=== PATIENT | male | born 1975 | race Caucasian/White ===

== ENCOUNTER 2023-02-26 08:16 | Emergency (ER) | payer OTHER, SELFPAY ==
[2023-02-26 08:21] VITALS: BP 127/90; PULSE 78; RESP 18; TEMP 36.4; O2SAT 96; BMI 30.3
--- NOTE | 2023-02-26 09:30 | ED_ITS ---
HPI - General Adult General Time Seen by Provider: 09:30 <Demi Garcia - Last Filed: 02/26/23 10:55> Date Seen: 02/26/23 <Demi Garcia - Last Filed: 02/26/23 10:55> Chief complaint: Headache/Migraine <Demi Garcia - Last Filed: 02/26/23 10:55> Stated complaint: head pains <Demi Garcia - Last Filed: 02/26/23 10:55> Time Seen by Provider: 02/26/23 08:54 <Demi Garcia - Last Filed: 02/26/23 10:55> Source: patient <Demi Garcia Last Filed: 02/26/23 10:55> History of Present Illness HPI narrative: 47 yo male without a pertinent prior medical hx presents with 1 day of headache at the base of the skull. He notes that a few days prior he had some fluttering in his left thigh as well as yesterday having fluttering of the muscles on the L side of his neck. This morning he woke up with a headache at the back of his skull with occasional numbness/tingling down the left side of the neck. He reports mild nausea but denies vomiting. He denies a hx of migraines, any recent falls or trauma to the head. He has not taken anything for the pain and is not currently on any medications. He is not on any blood thinners and has no family hx of bleeding or clotting disorders. He reports concern for a blood clots but denies any warmth or redness in the leg or prolonged periods of inactivity and has no history of blood clots. His sons have had colds for the past week or so and did not test for covid. He denies fever, chills, cough, congestion or diarrhea. Denies chest pain, heart palpitations or shortness of breath. <Demi Garcia Last Filed: 02/26/23 10:55> Related Data Home medications: Home Medications Medication Instructions Recorded Confirmed No Known Home Medications 02/26/23 02/26/23 <Demi Garcia Last Filed: 02/26/23 10:55> Allergies/adverse reactions: Allergies Allergy/AdvReac Type Severity Reaction Status Date / Time No Known Drug Allergies Allergy Verified 02/26/23 08:25 <Demi Garcia - Last Filed: 02/26/23 10:55> Review of Systems Status of ROS: Reports: 10 or more systems reviewed and unremarkable except as noted in History and below <Demi Garcia Last Filed: 02/26/23 10:55> Narrative: Constitutional: No fevers, no weight gain or loss. Eyes: No discharge. No vision changes. HENT: No congestion, no sore throat, no ear pain. Cardiovascular: No chest pain, no palpitations. Respiratory: No shortness of breath, no wheezes, no cough. Gastrointestinal: No abdominal pain, no vomiting, no diarrhea. Genitourinary: No dysuria, no hematuria. Musculoskeletal: Normal range of motion. Skin: No rashes, no pruritis. Neurological: No dizziness, weakness, sensory change, speech change. Endo/Heme/Allergies: No bruising or bleeding. No polydipsia. Pysch: no suicidality, no anxiety, no insomnia. All other systems reviewed and are negative. <Salty Amaya MD - Last Filed: 02/26/23 11:09> Exam Narrative: Exam Narrative: General: He is well appearing and lying upright in bed. HEENT: Normocephalic, atraumatic, PEERL Neck: Supple, no cervical adenopathy, ROM nml Cardiac: Regular rate Resp: No increased work of breathing on room air MSK: No LE edema, distal pulses 2+ b/l, no erythema, warmth or rashes of distal LEs Neuro: B/l certified detention deputy strength intact, LE strength 5/5 b/l <Demi Garcia Last Filed: 02/26/23 10:55> Const: Vital Signs, click to edit/add: Vital Signs - 24 hr 02/26/23 08:21 Temperature 97.6 F Pulse Rate [Right Pulse Oximeter] 78 Respiratory Rate 18 Blood Pressure [Ri ght Upper Arm] 127/90 H Pulse Oximetry 96 Oxygen Delivery Me thod Room Air <Demi Garcia Last Filed: 02/26/23 10:55> Vital Signs, click to edit/add: Vital Signs - 24 hr 02/26/23 08:21 Temperature 97.6 F Pulse Rate [Right Pulse Oximeter] 78 Respiratory Rate 18 Blood Pressure [Ri ght Upper Arm] 127/90 H Pulse Oximetry 96 Oxygen Delivery Me thod Room Air <Salty Amaya MD - Last Filed: 02/26/23 11:09> Course Course ED Course: DDx includes but not limited to Covid, migraine, cluster headache, tension headache, muscle fasciculations, DVT, cervical radiculopathy <Demi Jose - Last Filed: 02/26/23 10:55> Vital Signs Vital signs: Initial Vital Signs Temperature 97.6 F 02/26/23 08:21 Temperature Source Temporal Artery Scan 02/26/23 08:21 Pulse Rate 78 02/26/23 08:21 Respiratory Rate 18 02/26/23 08:21 Blood Pressure 127/90 H 02/26/23 08:21 Blood Pressure Mean 102 02/26/23 08:21 Blood Pressure Position Sitting 02/26/23 08:21 Pulse Oximetry 96 02/26/23 08:21 Oxygen Delivery Method Room Air 02/26/23 08:21 Vital Signs Temperature 97.6 F 02/26/23 08:21 Pulse Rate 78 02/26/23 08:21 Respiratory Rate 18 02/26/23 08:21 Blood Pressure 127/90 H 02/26/23 08:21 Pulse Oximetry 96 02/26/23 08:21 Oxygen Delivery Method Room Air 02/26/23 08:21 Temperature 97.6 F 02/26/23 08:21 Pulse Rate 78 02/26/23 08:21 Respiratory Rate 18 02/26/23 08:21 Blood Pressure 127/90 H 02/26/23 08:21 Pulse Oximetry 96 02/26/23 08:21 Oxygen Delivery Method Room Air 02/26/23 08:21 <Demi [place] - Last Filed: 02/26/23 10:55> Initial Vital Signs Temperature 97.6 F 02/26/23 08:21 Temperature Source Temporal Artery Scan 02/26/23 08:21 Pulse Rate 78 02/26/23 08:21 Respiratory Rate 18 02/26/23 08:21 Blood Pressure 127/90 H 02/26/23 08:21 Blood Pressure Mean 102 02/26/23 08:21 Blood Pressure Position Sitting 02/26/23 08:21 Pulse Oximetry 96 02/26/23 08:21 Oxygen Delivery Method Room Air 02/26/23 08:21 Vital Signs Temperature 97.6 F 02/26/23 08:21 Pulse Rate 78 02/26/23 08:21 Respiratory Rate 18 02/26/23 08:21 Blood Pressure 127/90 H 02/26/23 08:21 Pulse Oximetry 96 02/26/23 08:21 Oxygen Delivery Method Room Air 02/26/23 08:21 Temperature 97.6 F 02/26/23 08:21 Pulse Rate 78 02/26/23 08:21 Respiratory Rate 18 02/26/23 08:21 Blood Pressure 127/90 H 02/26/23 08:21 Pulse Oximetry 96 02/26/23 08:21 Oxygen Delivery Method Room Air 02/26/23 08:21 <Salty Amaya MD - Last Filed: 02/26/23 11:09> Medical Decision Making MDM Narrative Medical decision making narrative: This patient comes in reporting some altered sensation in his left upper extremity and his left leg upon awakening this morning. He also had a mild headache. His symptoms have since resolved. He comes in with concern that he might have had a stroke or blood clot. His exam and history is not suspicious for this at all. He arrives with normal vital signs and normal exam. He is okay to be discharged home. <Salty Amaya MD - Last Filed: 02/26/23 11:09> Discharge Plan Discharge Clinical Impression: Tension headache, Fasciculations of muscle <Demi Garcia - Last Filed: 02/26/23 10:55> Patient Disposition: Home, Self-Care <Demi Garcia - Last Filed: 02/26/23 10:55> Condition: Improved <Demi Garcia - Last Filed: 02/26/23 10:55> Additional Instructions: Recommend tylenol or ibuprofen prn for headache sx. If you experience severe headache, visual changes, fever, chills, chest pain, difficulty breathing, or pain in an extremity with warmth and redness, please return to the ED. May follow up with PCP regarding numbness in L side of neck if this returns/persists. Please go to the ER if you experience weakness. Recommend staying well hydrated and increasing electrolyte intake to prevent muscle fasciculations. <Demi Garcia - Last Filed: 02/26/23 10:55> Prescriptions: No Action No Known Home Medications <Demi Garcia - Last Filed: 02/26/23 10:55> Follow Up/Referrals: Salo Velasquez MD [Primary Care Provider] - <Demi Garcia - Last Filed: 02/26/23 10:55> Stand Alone Forms: MyHealth Info Instructions <Demi Garcia - Last Filed: 02/26/23 10:55>
[2023-02-26 11:10] VITALS: BP 126/96; PULSE 70; RESP 18; O2SAT 95
== END 2023-02-26 11:12 | disposition home or self-care (01) ==
PROVIDERS: Emergency Provider Emergency Medicine Emergency Medical Services; PCP Family Medicine
DX: G44.209 Tension-type headache, unspecified, not intractable (principal); R25.3 Fasciculation
CPT/HCPCS: 99282; 99283; 99284

== ENCOUNTER 2023-10-06 18:43 | Emergency (ER) | payer OTHER, SELFPAY ==
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
[2023-10-06 18:49] VITALS: BP 133/89; PULSE 94; RESP 18; TEMP 36.7; O2SAT 98; BMI 30.3
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
[2023-10-06 19:35] VITALS: BP 125/74; PULSE 80; RESP 18; TEMP 36.7; O2SAT 98
[2023-10-06 19:36] VITALS: BP 125/74; PULSE 80; RESP 18; TEMP 36.7
== END 2023-10-06 19:36 | disposition home or self-care (01) ==
LOC: ED 19:26
PROVIDERS: Emergency Provider Family Medicine; PCP Family Medicine
DX: S93.402A Sprain of unspecified ligament of left ankle, initial encounter (principal); V29.39XA Other motorcycle (driver) (passenger) injured in unspecified nontraffic accident, initial encounter
CPT/HCPCS: 73610; 99283

== ENCOUNTER 2024-10-08 08:21 | Outpatient (CLI) | payer OTHER, SELFPAY | END 2024-10-08 08:22 | disposition home or self-care (01) | PROVIDERS: PCP Family Medicine; Visit Provider Family Medicine | DX: R68.82 Decreased libido (principal); R79.89 Other specified abnormal findings of blood chemistry; N52.9 Male erectile dysfunction, unspecified; Z12.5 Encounter for screening for malignant neoplasm of prostate | CPT/HCPCS: 80053; 80061; 84403; G0103 ==

== ENCOUNTER 2024-10-17 08:11 | Outpatient (CLI) | payer OTHER, SELFPAY | END 2024-10-17 08:12 | disposition home or self-care (01) | LOC: NFLDREF 10-21 14:12 | PROVIDERS: PCP Family Medicine; Referring Provider Family Medicine; Visit Provider Family Medicine | DX: R68.82 Decreased libido (principal); R79.89 Other specified abnormal findings of blood chemistry | CPT/HCPCS: 83001; 83002; 84270; 84402; 84403 ==

== ENCOUNTER 2025-02-03 12:20 | Outpatient (CLI) | payer OTHER, SELFPAY | END 2025-02-03 12:21 | disposition home or self-care (01) | LOC: NFLDUCREF 12:21 | PROVIDERS: PCP Family Medicine; Visit Provider Physician Assistant | DX: S30.860A Insect bite (nonvenomous) of lower back and pelvis, initial encounter (principal); W57.XXXA Bitten or stung by nonvenomous insect and other nonvenomous arthropods, initial encounter | CPT/HCPCS: 86618 ==